=== PATIENT | male | born 1955 | race American Indian/Alaskan Native ===

== ENCOUNTER 2024-04-26 17:47 | Emergency (ER) | payer OTHER ==
[2024-04-26 17:55] VITALS: BP 133/81; PULSE 85; RESP 18; TEMP 98.8; BMI 26.4
== END 2024-04-26 19:11 | disposition home or self-care (01) ==
LOC: JER 17:47
DX: R94.31 Abnormal electrocardiogram [ECG] [EKG] (principal)
CPT/HCPCS: 99283-25